=== PATIENT | male | born 1970 ===

== ENCOUNTER 2023-01-21 10:35 | Day surgery (SDC) | payer OTHER, BC ==
[2023-01-20 09:31] VITALS: BMI 26.3
[2023-01-21] MEDS ORDERED: Fentanyl 250 MCG/5 ML VIAL ONE (11:24)
[2023-01-21] MEDS ORDERED: Dexamethasone 4 mg/ml Vial ONE (11:24)
[2023-01-21] MEDS ORDERED: Lidocaine 1% PF 5 ML VIAL ONE (11:24)
[2023-01-21] MEDS ORDERED: Midazolam HCl 2 mg/2 ml Vial ONE (11:24)
[2023-01-21] MEDS ORDERED: PROPOFOL 20 ML ONE (11:24)
[2023-01-21] MEDS ORDERED: Rocuronium Bromide 10 MG/ML (10ML VIAL) ONE (11:24)
[2023-01-21] MEDS ORDERED: Ondansetron PF 4 MG/2 ML Vial ONE (11:24)
[2023-01-21] MEDS ORDERED: Ketorolac Tromethamine 30 MG/ML VIAL ONE (11:24)
[2023-01-21] MEDS ORDERED: Lidocaine 4% PF 5 ML AMP ONE (11:25)
[2023-01-21] MEDS ORDERED: Bupivacaine PF 0.5% 30 ML VIAL ONE (12:17)
[2023-01-21] MEDS ORDERED: EPINEPHrine 1 MG/ML VIAL ONE (12:17)
[2023-01-21] MEDS ORDERED: Clindamycin/D5W 600 mg/50 ml Premix Bag ONE (12:24)
[2023-01-21] MEDS ORDERED: HYDROcodone/Acetaminophen 5/325 mg Tablet PO PRN ×2 (14:06)
[2023-01-21] MEDS ORDERED: Acetaminophen 325 MG TAB PO PRN (14:06)
[2023-01-21] MEDS ORDERED: HYDROcodone/Acetaminophen 5/325 mg Tablet ONE (14:56)
== END 2023-01-21 15:35 | disposition home or self-care (01) ==
LOC: CSHSDC 10:35
PROVIDERS: ATTEND Surgery
PROC: 0YU Anatomical Regions, Lower Extremities, Supplement (ICD-10-PCS; principal; 2023-01-21)
DX: K40.20 Bilateral inguinal hernia, without obstruction or gangrene, not specified as recurrent (principal); I10 Essential (primary) hypertension; E11.9 Type 2 diabetes mellitus without complications; M19.90 Unspecified osteoarthritis, unspecified site; Z79.899 Other long term (current) drug therapy; Z98.890 Other specified postprocedural states; Z88.0 Allergy status to penicillin
CPT/HCPCS: J0171; J1100; J1885; J2250; J2405; J2704; J3010; J3490; S0020